=== PATIENT | female | born 1965 | race Caucasian/White ===

== ENCOUNTER 2016-10-22 09:31 | Emergency (ER) | payer OTHER ==
[2016-10-22] MEDS ORDERED: Ondansetron ODT TAB* 4 MG PO ONE (09:37)
[2016-10-22] MEDS ORDERED: Ondansetron INJ* 2 MG/ML VIAL ONE (09:42)
[2016-10-22] MEDS ORDERED: Ondansetron INJ* 2 MG/ML VIAL IV ONE (10:11)
[2016-10-22] MEDS ORDERED: Metoclopramide IV* 5 MG/ML 2 ML VIAL IV SLOW PU ONE (11:01)
[2016-10-22] MEDS ORDERED: Metoclopramide IV* 5 MG/ML 2 ML VIAL ONE (11:02)
[2016-10-22 11:03] LABS: Hematocrit 44 % (35-47); Hemoglobin 14.9 g/dl (12.0-16.0); Mean Corpuscular HGB Conc 34 g/dl (31-36); Mean Corpuscular Hemoglobin 31 pg (27-31); Mean Corpuscular Volume 91 fL (80-97); Mean Platelet Volume 10 um3 (7.4-10.4); Red Blood Count 4.87 10^6/ul (4.0-5.4); Red Cell Distribution Width 14 % (10.5-15); White Blood Count 12.7 10^3/ul (3.5-10.8)
[2016-10-22 11:17] LABS: Albumin 4.2 g/dL (3.2-5.2); BUN/Creatinine Ratio 23.7 (8-20); Calcium 10.5 mg/dL (8.6-10.3); EGFR African American 138.8 (>60); EGFR Non-African American 107.9 (>60); Globulin 3.1 g/dL (2-4); Potassium 3.8 mmol/L (3.5-5.0); Total Bilirubin 0.7 mg/dL (0.2-1.0); Total Protein 7.3 g/dL (6.4-8.9)
[2016-10-22] MEDS ORDERED: Morphine INJ* 4 MG/ML 1 ML CARPUJECT IV ONE (12:02)
[2016-10-22] MEDS ORDERED: PROCHLORPERAZINE INJ 5 MG/ML 2 ML VIAL IV PRN (12:02)
[2016-10-22] MEDS ORDERED: NS 0.9% 1000 ML* 2,000 ML IV ONE ×2 (12:03→15:50)
--- NOTE | 2016-10-22 12:44 | RAD ---
CLINICAL HISTORY: Left flank pain COMPARISON: None TECHNIQUE: Multiple contiguous axial CT scans were obtained of the abdomen and pelvis, without intravenous contrast enhancement. Coronal and sagittal multiplanar reformations are submitted for review. Oral contrast was not administered. FINDINGS: The study is limited by the lack of intravenous contrast. This limits evaluation of the solid organs and vasculature. LUNG BASES: The lung bases are clear. LIVER: The right lobe of liver measures 19 cm in long axis. BILE DUCTS: There is no intrahepatic or extrahepatic biliary dilatation. GALLBLADDER: The gallbladder is not visualized. Surgical clips are noted in the gallbladder fossa. PANCREAS: The pancreas is normal, without mass or ductal dilatation. SPLEEN: Normal in size and appearance. UPPER GI TRACT: Evaluation of the gastrointestinal tract is limited by incomplete gastric distention. The upper GI tract is unremarkable. SMALL BOWEL AND MESENTERY: The small bowel is normal in contour, course, and caliber. There is no obstruction or dilatation. COLON: The colon is normal in contour, course, caliber. There is no pericolonic inflammatory change. ADRENALS: Again noted is enlargement of the adrenal glands bilaterally KIDNEYS: There is a 4.5 x 3.8 cm mass of the lower pole of the left kidney. There is high attenuation material within the left renal pelvis which may represent a calculus measuring up to 1.4 cm. There is no hydronephrosis. BLADDER: The bladder is smooth in contour. PELVIC ORGANS: There is a 2.8 cm cystic lesion of the left hemipelvis. AORTA: The aorta is normal. IVC: Unremarkable LYMPH NODES: There is no lymphadenopathy by size criteria. ABDOMINAL WALL: There is no evidence for abdominal wall hernia. BONES AND SOFT TISSUES: Unremarkable OTHER: None IMPRESSION: 1. THERE IS A 4.5 CM MASS OF THE LOWER POLE OF THE LEFT KIDNEY CONCERNING FOR RENAL PARENCHYMAL NEOPLASM. 2. THERE IS HIGH ATTENUATION MATERIAL MATERIAL, WHICH MAY REPRESENT A NONOBSTRUCTING PELVIC STONE MEASURING UP TO 1.4 CM.. 3. THERE IS 2.8 CM CYSTIC LESION LEFT HEMIPELVIS, LIKELY OVARIAN IN ORIGIN BUT INCOMPLETELY EVALUATED ON NONCONTRAST CT 4. THERE IS AN ENLARGED RIGHT LOBE OF LIVER VERSUS BERNADETTE'S LOBE
[2016-10-22 13:02] LABS: Urine Bacteria Absent (Absent); Urine Bilirubin Negative (Negative); Urine Glucose Negative (Negative); Urine Nitrite Negative (Negative)
[2016-10-22] MEDS ORDERED: cefTRIAXone(*) 1 GM in NS 0.9% 50 ML* 50 ML IVPB ONE (13:35)
--- NOTE | 2016-10-22 17:16 | RAD ---
INDICATION: Left flank pain COMPARISON: CT abdomen pelvis from the same date TECHNIQUE: Real-time ultrasound examination of the bilateral kidneys and urinary bladder including grayscale and Doppler color flow analysis. FINDINGS: The right kidney is normal in size and echogenicity. There are no hypervascular renal masses. There are no renal calculi or hydronephrosis identified. At the lower pole of the left kidney there is a heterogeneous mass measuring 4.9 x 4.7 x 5.3 cm exhibiting moderate vascularity. The ivey of the urinary bladder are smooth. The pre and post urinary bladder volumes are , respectively. Normal ureteral jets are identified bilaterally. Incidentally imaged is an avascular and heterogeneous echogenic follicle in the left ovary. IMPRESSION: 1. Vascular mass at the lower pole the left kidney measuring up to 5.3 cm in greatest dimension. This is most concerning for malignancy and neoplastic workup is advised. 2. Incidentally noted is an echogenic left ovarian follicle which is not necessarily pathologic in a woman who is still undergoing menstrual activity. This can be followed with pelvic ultrasound in 6 weeks to ascertain resolution.
[2016-10-22 18:40] VITALS: BP 120/72
--- NOTE | 2016-10-23 16:28 | ED ---
I, Enrike,Santhosh, scribed for Ancelmo Tam MD on 10/22/16 at 1203 . Abdominal Pain/Female - HPI Summary HPI Summary: This 51 y/o female presents to ED for acute LLQ abd pain since 2300 PM last night. Pt also reports blood in urine since 3 days ago and n/v since the onset of abd pain since morning. Pt is s/p hysterectomy, and is denying any possibility of bleeding be vaginal. PMHx includes UTI. Pt denies any history of kidney stone, but expresses concerned that she might have one this time. Pt is currently on lipitor. She is a daily drinker and daily smoker. - History of Current Complaint Chief Complaint: EDAbdPain Stated Complaint: POSS RECTAL/ VAGINAL BLEEDING Time Seen by Provider: 10/22/16 10:36 Hx Obtained From: Patient Hx Last Menstrual Period: about a month ago Onset/Duration: Sudden Onset Timing: Constant Severity Initially: Moderate Severity Currently: Moderate Pain Intensity: 0 Location: Discrete At: LLQ Radiates: No Character: Sharp Aggravating Factor(s): Nothing Alleviating Factor(s): Nothing Associated Signs and Symptoms: Positive: Urinary Symptoms - hematuria, Nausea, Vomiting. Negative: Fever Allergies/Adverse Reactions: Allergies Allergy/AdvReac Type Severity Reaction Status Date / Time Latex Allergy RED AND Verified 04/27/15 07:01 ITCHY Varenicline [From Chantix] Allergy SEVERE Verified 04/27/15 07:01 DEPRESSION IMMEDIATELY AFTER STARTED TAKING PMH/Surg Hx/FS Hx/Imm Hx Endocrine/Hematology History: Reports: Hx Blood Transfusions - during , Hx Anemia - reports being severely anemic-SOMETIMES WORSE THAN OTHERS Denies: Hx Anticoagulant Therapy, Hx Blood Disorders, Hx Bone Marrow Disease , Hx Diabetes, Hx Systemic Lupus Erythematosus, Hx Sickle Cell Disease, Hx Thyroid Disease, Hx Unexplained Bleeding Cardiovascular History: Reports: Other Cardiovascular Problems/Disorders - STATES HAS "EXTREMELY LOW BLOOD PRESSURE" Denies: Hx Hypertension, Hx Pacemaker/ICD Respiratory History: Reports: Hx Asthma - HX OF BUT Not in years, Hx Pneumonia - 15 years ago, Other Respiratory Problems/Disorders - heqavy smoker 30+ yrs Denies: Hx Chronic Bronchitis, Hx Chronic Obstructive Pulmonary Disease (COPD ), Hx Cystic Fibrosis, Hx Lung Cancer, Hx Pleural Effusion, Hx Pulmonary Edema, Hx Pulmonary Embolism, Hx Seasonal Allergies, Hx Sleep Apnea GI History: Reports: Hx Gall Bladder Disease - Ch[place] 4 years ago Denies: Hx Cirrhosis, Hx Crohn's Disease, Hx Diverticulosis, Hx Gastroesophageal Reflux Disease, Hx Gastrointestinal Bleed, Hx Hiatal Hernia, Hx Irritable Bowel, Hx Jaundice, Hx Obstructive Bowel, Hx Ileostomy, Hx Pyloric Stenosis, Hx Ulcer, Other GI Disorders History: Reports: Hx Kidney Infection - 1984 Denies: Hx Acute Renal Failure, Hx Benign Prostatic Hyperplasia, Hx Chronic Renal Failure, Hx Dialysis, Hx Kidney Stones, Hx Renal Disease Musculoskeletal History: Reports: Hx Back Problems, Other Musculoskeletal History - BACK PAIN Denies: Hx Arthritis, Hx Bursitis, Hx Congenital Bone Abnormalities, Hx Fibromyalgia, Hx Gout, Hx Orthopedic Injury, Hx Osteoporosis, Hx Scoliosis, Hx Tendonitis Sensory History: Reports: Hx Vision Problem - difficulty focusing Denies: Hx Contacts or Glasses, Hx Hearing Aid Opthamlomology History: Reports: Hx Vision Problem - difficulty focusing Denies: Hx Contacts or Glasses Neurological History: Reports: Hx Headaches, Hx Migraine - COMPLEX- VISUAL AURAS - WAITED OUT Denies: Hx Dementia, Hx Developmental Delay, Hx Seizures, Hx Spinal Cord Injury, Hx Transient Ischemic Attacks (TIA), Other Neuro Impairments/Disorders Psychiatric History: Reports: Hx Anxiety - NO MEDICATION FOR AT THIS TIME, Hx Depression - ON AND OFF OVER THE YEARS Denies: Hx Attention Deficit Hyperactivity Disorder, Hx Eating Disorder, Hx Panic Disorder, Hx Post Traumatic Stress Disorder, Hx Inpatient Treatment, Hx Community Mental Health Tx, Hx Schizophrenia, Hx Bipolar Disorder, Hx Suicide Attempt, Hx of Violent Episodes Against Others, Hx Substance Abuse - Cancer History Cancer Type, Location and Year: PRE CANCER LEFT BREAST-APPOINTMENT WITH SURGEON. neg biposy 02/2013 Hx Chemotherapy: No Hx Radiation Therapy: No - Surgical History Surgery Procedure, Year, and Place: CHOLECYCTECTOMY 2009-[facility]. APPY 2003, TUBAL 2009,. UTERINE ABLATION 2010, LEFT [facility]IA REM[facility]- [facility]. LEFT BREAST lumpectomy AND RIGHT ARMPIT 02/2013 neg for cancer-[facility] Hx Anesthesia Reactions: Yes - STATES CAN WAKE UP WITH "ATTITUDE"/ STATES HAS WOKE UP DURING SURGERY-2012 Infectious Disease History: No Infectious Disease History: Denies: Hx Clostridium Difficile, Hx Hepatitis - STATES NO- BUT HAS BEEN EXPOSED AND STATES IS DUE TO BE TESTED, Hx Human Immunodeficiency Virus (HIV), Hx Shingles, Hx Tuberculosis, Traveled Outside the [place] in Last 30 Days - Family History Known Family History: Positive: Respiratory Disease, Other Family History: COPD, CA - lung, pancreatic - Social History Alcohol Use: Daily Alcohol Amount: 2 BEERS/OR GLASSES OF WINE WITH DINNER Hx Substance Use: Yes - Remote hx 30+ years ago. Substance Use Type: Reports: Prescribed Substance Use Comment - Amount & Last Used: occasionally Hx Tobacco Use: Yes Smoking Status (MU): Light Every Day Tobacco Smoker Amount Used/How Often: 1/2 ppd X 30 YEARS Have You Smoked in the Last Year: Yes Review of Systems Negative: Fever, Chills Negative: Erythema Negative: Sore Throat Negative: Chest Pain Negative: Shortness Of Breath Positive: Abdominal Pain, Vomiting, Nausea Positive: hematuria Negative: Myalgia, Edema Negative: Rash Neurological: Other - negative dizziness All Other Systems Reviewed And Are Negative: Yes Physical Exam - Summary Physical Exam Summary: Constitutional: Well-developed, Well-nourished, Alert. (-) Distressed Skin: Warm, Dry HENT: Normocephalic; Atraumatic Eyes: Conjunctiva normal Neck: Musculoskeletal ROM normal neck. (-) JVD, (-) Stridor, (-) Tracheal deviation Cardio: Rhythm regular, rate normal, Heart sounds normal; Intact distal pulses; The pedal pulses are 2+ and symmetric. Radial pulses are 2+ and symmetric. (-) Murmur Pulmonary/Chest wall: Effort normal. (-) Respiratory distress, (-) Wheezes, (-) Rales Abd: Soft, (+) Tenderness at LLQ and suprapubic, (-) Distension, (-) Guarding, (-) Rebound Musculoskeletal: (-) Edema Lymph: (-) Cervical adenopathy Neuro: Alert, Oriented x3 Psych: Mood and affect Normal Triage Information Reviewed: Yes Vital Signs On Initial Exam: Initial Vitals Temp Pulse Resp BP Pulse Ox 99.9 F 53 24 124/99 98 10/22/16 09:51 10/22/16 09:51 10/22/16 09:51 10/22/16 09:51 10/22/16 09:51 Vital Signs Reviewed: Yes Diagnostics - Vital Signs Vital Signs Temp Pulse Resp BP Pulse Ox 10/22/16 11:16 18 10/22/16 11:13 98.7 F 10/22/16 10:57 99.9 F 53 24 124/99 98 10/22/16 09:51 99.9 F 53 24 124/99 98 - Laboratory Lab Results: Lab Results 10/22/16 10/22/16 Range/Units 09:58 09:58 WBC 12.7 H (3.5-10.8) 10^3/ul RBC 4.87 (4.0-5.4) 10^6/ul Hgb 14.9 (12.0-16.0) g/dl Hct 44 (35-47) % MCV 91 (80-97) fL MCH 31 (27-31) pg MCHC 34 (31-36) g/dl RDW 14 (10.5-15) % Plt Count 231 (150-450) 10^3/ul MPV 10 (7.4-10.4) um3 Neut % (Auto) 78.3 (38-83) % Lymph % (Auto) 14.9 L (25-47) % Wagoner % (Auto) 5.8 (1-9) % Eos % (Auto) 0.1 (0-6) % Baso % (Auto) 0.9 (0-2) % Absolute Neuts (auto) 9.9 H (1.5-7.7) 10^3/ul Absolute Lymphs (auto) 1.9 (1.0-4.8) 10^3/ul Absolute Monos (auto) 0.7 (0-0.8) 10^3/ul Absolute Eos (auto) 0 (0-0.6) 10^3/ul Absolute Basos (auto) 0.1 (0-0.2) 10^3/ul Absolute Nucleated RBC 0.01 10^3/ul Nucleated RBC % 0 Sodium 135 (133-145) mmol/L Potassium 3.8 (3.5-5.0) mmol/L Chloride 103 (101-111) mmol/L Carbon Dioxide 23 (22-32) mmol/L Anion Gap 9 (2-11) mmol/L BUN 14 (6-24) mg/dL Creatinine 0.59 (0.51-0.95) mg/dL Est GFR ( Amer) 138.8 (>60) Est GFR (Non-Af Amer) 107.9 (>60) BUN/Creatinine Ratio 23.7 H (8-20) Glucose 129 H (70-100) mg/dL Calcium 10.5 H (8.6-10.3) mg/dL Total Bilirubin 0.70 (0.2-1.0) mg/dL AST 14 (13-39) U/L ALT 13 (7-52) U/L Alkaline Phosphatase 67 (34-104) U/L Total Protein 7.3 (6.4-8.9) g/dL Albumin 4.2 (3.2-5.2) g/dL Globulin 3.1 (2-4) g/dL Albumin/Globulin Ratio 1.4 (1-3) Lipase 20 (11.0-82.0) U/L Result Diagrams: 10/22/16 09:58 10/22/16 09:58 Lab Statement: Any lab studies that have been ordered have been reviewed, and results considered in the medical decision making process. - CT Ab/P CT Interpretation: Positive (See Comments) - 1. THERE IS A 4.5 CM MASS OF THE LOWER POLE OF THE LEFT KIDNEY CONCERNING FOR RENAL PARENCHYMAL NEOPLASM. 2. THERE IS HIGH ATTENUATION MATERIAL MATERIAL, WHICH MAY REPRESENT A NONOBSTRUCTING PELVIC STONE MEASURING UP TO 1.4 CM.. 3. THERE IS 2.8 CM CYSTIC LESION LEFT HEMIPELVIS, LIKELY OVARIAN IN ORIGIN BUT INCOMPLETELY EVALUATED ON NONCONTRAST CT 4. THERE IS AN ENLARGED RIGHT LOBE OF LIVER VERSUS BERNADETTE'S LOBE CT Interpretation Completed By: Radiologist - EKG 0952 Cardiac Rate: NL - 53 bpm EKG Rhythm: Sinus Rhythm ST Segment: Normal Abdominal Pain Fem Course/Dx - Course Course Of Treatment: MDM: 51 y/o F c/o acute LLQ abd pain since 2300 yesterday. Associted sx: hematuria for 3 days, n/v since last night, abd pain this AM. Pt is s/p hysterectomy, and denies vaginal bleeding. PMHx includes UTI. Pt is on lipitor. She is a daily drinker and daily smoker. Abd/Pel CT is positive for: 4.5 cm mass of lower pole of L kidney concerning for renal parenchymal neoplasm ; high attenuation material of 1.4 cm which may be a nonobstructing pelvic stone ; 2.8 cystuc lesion of L hemipelvis likely ovarian in nature; enlarged R lobe of liver vs Bernadette's lobe. EKG is nml. Spoke with Dr. Knight, urology. - Diagnoses Provider Diagnoses: Renal mass - Provider Notifications Discussed Care Of Patient With: 1339: Dr. Knight, urology, will review CT and call back. 1405: Dr. Knight. Discharge - Discharge Plan Condition: Good Disposition: HOME Prescriptions: Cephalexin CAP* [Keflex CAP*] 500 mg PO QID #40 cap Ondansetron ODT TAB* [Zofran Odt TAB*] 4 mg PO Q8H PRN #15 tab.odt PRN Reason: Nausea/Vomiting Prochlorperazine TAB* [Compazine Tab*] 5 mg PO Q8H PRN #15 tab PRN Reason: Nausea/Vomiting oxyCODONE/Acetamin 5/325 MG* [Percocet 5/325 TAB*] 1 tab PO Q6H PRN #15 tab MDD 4 PRN Reason: Pain Scale 6-10 Referrals: Dominguez Knight MD [Medical Doctor] - (TOMORROW AT 0830) The documentation as recorded by the Enrike garcia Soohyun accurately reflects the service I personally performed and the decisions made by , Ancelmo Tam MD.
== END 2016-10-22 18:37 | disposition home or self-care (01) ==
LOC: ED 09:31
DX: N28.89 Other specified disorders of kidney and ureter (principal); R10.32 Left lower quadrant pain; R11.2 Nausea with vomiting, unspecified; R31.9 Hematuria, unspecified; F17.200 Nicotine dependence, unspecified, uncomplicated
CPT/HCPCS: 36415; 74176; 76770; 80053; 81003; 81015; 83690; 85025; 87086; 93005; 96374; 96375; 96376; 99284; J0696; J0780; J2270; J2405; J2765

== ENCOUNTER 2017-10-23 11:37 | Emergency (ER) | payer SELFPAY ==
[2017-10-23] MEDS ORDERED: Tetan/Diph/Pertus SYR(Tdap)* 0.5 ML SYR(BOOSTRIX) use SYR IM ONE (13:08)
[2017-10-23 13:16] LABS: ABS Basophils 0.2 10^3/ul (0-0.2); ABS Eosinophils 0.2 10^3/ul (0-0.6); ABS Lymphocytes 2.7 10^3/ul (1.0-4.8); ABS Monocytes 0.5 10^3/ul (0-0.8); ABS Nucleated RBC 0 10^3/ul; Eosinophil % 3.2 % (0-6); Hematocrit 43 % (35-47); Hemoglobin 14.6 g/dl (12.0-16.0); Lymphocyte % 40.8 % (25-47); Mean Corpuscular HGB Conc 34 g/dl (31-36); Mean Corpuscular Hemoglobin 32 pg (27-31); Mean Corpuscular Volume 93 fL (80-97); Mean Platelet Volume 8 um3 (7.4-10.4); Nucleated Red Blood Cells % 0.1; Platelet Count 251 10^3/ul (150-450); Red Blood Count 4.62 10^6/ul (4.0-5.4); Red Cell Distribution Width 14 % (10.5-15); White Blood Count 6.5 10^3/ul (3.5-10.8)
[2017-10-23 14:00] LABS: EGFR Non-African American 139.7 (>60)
[2017-10-23] MEDS ORDERED: Iodixanol* (CONTRAST) 320 MG/ML 100 ML SDV IV ONE (14:10)
[2017-10-23] MEDS ORDERED: Ondansetron ODT TAB* 4 MG SL ONE (14:32)
[2017-10-23] MEDS ORDERED: Ketorolac INJ* 30 MG/ML 1 ML VIAL IV PUSH ONE (14:33)
[2017-10-23] MEDS ORDERED: Ketorolac INJ* 15 MG/ML 1 ML VIAL ONE (14:39)
--- NOTE | 2017-10-23 14:46 | RAD ---
HISTORY: Subacute trauma, chest pain, concussion symptoms COMPARISONS: March 22, 2013 TECHNIQUE: Multiple contiguous axial CT scans were obtained of the head without intravenous contrast. FINDINGS: HEMORRHAGE/INFARCT: There is no hemorrhage or acute infarct. MASSES/SHIFT: There is no mass or shift. EXTRA-AXIAL SPACES: There are no extra-axial fluid collections. SULCI AND VENTRICLES: The sulci and ventricles are normal in size and position for the patient's stated age. CEREBRUM: There are no focal parenchymal abnormalities. BRAINSTEM: There are no focal parenchymal abnormalities. CEREBELLUM: There are no focal parenchymal abnormalities. VESSELS: The vessels are grossly normal. PARANASAL SINUSES: The paranasal sinuses are clear. ORBITS: The orbits are unremarkable. BONES AND SOFT TISSUE: No bone or soft tissue abnormalities are noted. OTHER: None IMPRESSION: NO ACUTE INTRACRANIAL PATHOLOGY.
--- NOTE | 2017-10-23 14:47 | RAD ---
HISTORY: Subacute trauma, facial trauma COMPARISONS: None TECHNIQUE: Multiple contiguous axial CT scans were obtained of the face without intravenous contrast, with coronal and sagittal multiplanar reformations. FINDINGS: BONES: There is no displaced fracture or dislocation. The orbital rim is intact. The zygomatic arch is intact. The pterygoid plates are intact. ORBITS: The globes are round. The optic nerves are symmetric. The extraocular musculature is normal. There is no post septal or intraconal inflammatory change. There is no retrobulbar hematoma. PARANASAL SINUSES: The paranasal sinuses are clear. There is a small osteoma left ethmoid air cells. BRAIN AND SOFT TISSUE: Unremarkable. OTHER: None. IMPRESSION: NO FACIAL FRACTURE
--- NOTE | 2017-10-23 15:01 | RAD ---
INDICATION: Chest pain status post trauma. COMPARISON: Comparison is made with a chest x-ray study from March 22, 2013. TECHNIQUE: A CT scan of the chest was performed with intravenous contrast following intravenous injection of 80 ml of Visipaque 320 nonionic contrast. Contiguous axial sections were obtained from the lung apices through the lung bases. Images were reconstructed in the coronal and sagittal planes. FINDINGS: There is moderate centrilobular emphysematous change. The lungs are clear. There is no evidence for pulmonary contusion. No pneumothorax or pleural effusion is present. No significant enlarged mediastinal or hilar lymph nodes are seen. There is no evidence for mediastinal hemorrhage. The heart is within normal limits in size. No pericardial effusion is present. The thoracic aorta is normal in caliber and demonstrates homogeneous contrast opacification. There are bilateral adrenal masses of intermediate density measuring 3.2 x 1.3 cm on the right and 6.1 x 1.8 cm on the left. These have increased slightly in size from prior exams and were low-attenuation on the prior noncontrast CT studies favoring benign adenomas. No significant focal osseous abnormality is seen. IMPRESSION: 1 NO EVIDENCE FOR ACUTE FINDING. 2. MODERATE CENTRILOBULAR EMPHYSEMATOUS CHANGE. 3. BILATERAL ADRENAL MASSES SLIGHTLY INCREASED IN SIZE, PRIOR STUDIES FAVOR BENIGN ADENOMAS ALTHOUGH GIVEN THE INTERVAL INCREASE IN SIZE RECOMMEND EITHER A FOLLOW-UP NONCONTRAST CT OR MRI OF THE ABDOMEN FOR FURTHER EVALUATION.
[2017-10-23 15:45] VITALS: BP 119/88
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
== END 2017-10-23 15:57 | disposition home or self-care (01) ==
LOC: ED 11:37
DX: R07.89 Other chest pain (principal); S06.0X9A Concussion with loss of consciousness of unspecified duration, initial encounter; R07.9 Chest pain, unspecified; R51 Headache; Z86.79 Personal history of other diseases of the circulatory system; J02.9 Acute pharyngitis, unspecified; R05 Cough; F17.210 Nicotine dependence, cigarettes, uncomplicated; V49.9XXA Car occupant (driver) (passenger) injured in unspecified traffic accident, initial encounter; Y92.410 Unspecified street and highway as the place of occurrence of the external cause
CPT/HCPCS: 36415; 70450; 70486; 71260; 80053; 85025; 90471; 90715; 96374; 96375; 99283; A9270-GY; J1885; Q9967

== ENCOUNTER 2019-03-27 16:59 | Emergency (ER) | payer MEDICAID, OTHER ==
--- NOTE | 2019-03-27 17:23 | ED ---
Lower Extremity - HPI Summary HPI Summary: A 53 y/o female presents to [facility] with a chief complaint of left foot pain today. She reportedly dropped heavy wooden box with the corner of the box hitting her left foot. She reports swelling immediately and worsening pain. At triage she rated her pain as a 7/10 in severity. She has not taken anything for pain. She drove herself to the ED. - History of Current Complaint Chief Complaint: EDExtremityLower Stated Complaint: POSS LT BROKEN FOOT PER PT Time Seen by Provider: 03/27/19 17:17 Hx Obtained From: Patient Hx Last Menstrual Period: about a month ago Mechanism Of Injury: Direct Blow Onset of Pain: Immediate, Post Accident, Prior to Arrival Onset/Duration: Minutes Severity Initially: Severe Severity Currently: Severe Pain Intensity: 7 Timing: Constant, Lasting Minutes Location: Is Discrete @ - left foot Character Of Pain: Unable To Describe Associated Signs And Symptoms: Positive: Swelling Aggravating Factor(s): Nothing Alleviating Factor(s): Nothing Able to Bear Weight: Yes - Allergies/Home Medications Allergies/Adverse Reactions: Allergies Allergy/AdvReac Type Severity Reaction Status Date / Time latex Allergy Rash Verified 03/27/19 17:07 varenicline [From Chantix] Allergy Suicidal Verified 03/27/19 17:07 ideation PET scan dye Allergy Hives Uncoded 04/27/18 12:03 PMH/Surg Hx/FS Hx/Imm Hx Endocrine/Hematology History: Reports: Hx Blood Transfusions - during Denies: Hx Anticoagulant Therapy, Hx Blood Disorders, Hx Bone Marrow Disease , Hx Diabetes, Hx Systemic Lupus Erythematosus, Hx Sickle Cell Disease, Hx Thyroid Disease, Hx Anemia, Hx Unexplained Bleeding Cardiovascular History: Reports: Other Cardiovascular Problems/Disorders - STATES HAS "EXTREMELY LOW BLOOD PRESSURE" Denies: Hx Hypertension, Hx Pacemaker/ICD Respiratory History: Reports: Hx Asthma - HX OF BUT Not in years, Hx Pneumonia - 15 years ago, Other Respiratory Problems/Disorders - heqavy smoker 30+ yrs Denies: Hx Chronic Bronchitis, Hx Chronic Obstructive Pulmonary Disease (COPD ), Hx Cystic Fibrosis, Hx Lung Cancer, Hx Pleural Effusion, Hx Pulmonary Edema, Hx Pulmonary Embolism, Hx Seasonal Allergies, Hx Sleep Apnea GI History: Reports: Hx Gall Bladder Disease - Choley 4 years ago Denies: Hx Cirrhosis, Hx Crohn's Disease, Hx Diverticulosis, Hx Gastroesophageal Reflux Disease, Hx Gastrointestinal Bleed, Hx Hiatal Hernia, Hx Irritable Bowel, Hx Jaundice, Hx Obstructive Bowel, Hx Ileostomy, Hx Pyloric Stenosis, Hx Ulcer, Other GI Disorders History: Reports: Hx Kidney Infection - 1984 Denies: Hx Acute Renal Failure, Hx Benign Prostatic Hyperplasia, Hx Chronic Renal Failure, Hx Dialysis, Hx Kidney Stones, Hx Renal Disease Musculoskeletal History: Reports: Hx Back Problems, Other Musculoskeletal History - BACK PAIN Denies: Hx Arthritis, Hx Bursitis, Hx Congenital Bone Abnormalities, Hx Fibromyalgia, Hx Gout, Hx Orthopedic Injury, Hx Osteoporosis, Hx Scoliosis, Hx Tendonitis Sensory History: Reports: Hx Vision Problem - difficulty focusing Denies: Hx Contacts or Glasses, Hx Hearing Aid Opthamlomology History: Reports: Hx Vision Problem - difficulty focusing Denies: Hx Contacts or Glasses Neurological History: Reports: Hx Headaches, Hx Migraine - COMPLEX- VISUAL AURAS - WAITED OUT Denies: Hx Dementia, Hx Developmental Delay, Hx Seizures, Hx Spinal Cord Injury, Hx Transient Ischemic Attacks (TIA), Other Neuro Impairments/Disorders Psychiatric History: Reports: Hx Anxiety - NO MEDICATION FOR AT THIS TIME, Hx Depression - ON AND OFF OVER THE YEARS Denies: Hx Attention Deficit Hyperactivity Disorder, Hx Eating Disorder, Hx Panic Disorder, Hx Post Traumatic Stress Disorder, Hx Inpatient Treatment, Hx Community Mental Health Tx, Hx Schizophrenia, Hx Bipolar Disorder, Hx Suicide Attempt, Hx of Violent Episodes Against Others, Hx Substance Abuse - Cancer History Cancer Type, Location and Year: PRE CANCER LEFT BREAST-APPOINTMENT WITH SURGEON. neg biposy 02/2013 Hx Chemotherapy: No Hx Radiation Therapy: No - Surgical History Surgery Procedure, Year, and Place: CHOLECYCTECTOM[place] 2009[place] [place] APPY 2003, TUBAL 2009,. UTERINE ABLATION 2010, [facility]. LEFT BREAST lumpectomy AND RIGHT ARMPIT 02/2013 neg for cancer-[facility] [place] Hx Anesthesia Reactions: Yes - STATES CAN WAKE UP WITH "ATTITUDE"/ STATES HAS WOKE UP DURING SURGERY-2012 - Immunization History Date of Tetanus Vaccine: unknown Date of Influenza Vaccine: NO Infectious Disease History: No Infectious Disease History: Denies: Hx Clostridium Difficile, Hx Hepatitis - STATES NO- BUT HAS BEEN EXPOSED AND STATES IS DUE TO BE TESTED, Hx Human Immunodeficiency Virus (HIV), Hx Shingles, Hx Tuberculosis, Traveled Outside the [place] in Last 30 Days - Family History Known Family History: Positive: Respiratory Disease, Other Family History: COPD, CA - lung, pancreatic - Social History Alcohol Use: Occasionally Alcohol Amount: 2 glasses wine a week Hx Substance Use: Yes - Remote hx 30+ years ago. Substance Use Type: Reports: Marijuana Substance Use Comment - Amount & Last Used: occasionally Hx Tobacco Use: Yes Smoking Status (MU): Light Every Day Tobacco Smoker Amount Used/How Often: 1/2 ppd X 30 YEARS Have You Smoked in the Last Year: Yes Review of Systems Negative: Fever Positive: Myalgia - pain left foot, Other - positive: swelling left foot All Other Systems Reviewed And Are Negative: Yes Physical Exam - Summary Physical Exam Summary: Appearance: The patient is well-nourished in no acute distress and in no acute pain. Skin: The skin is warm and dry and skin color reflects adequate perfusion. HEENT: The head is normocephalic and atraumatic. The pupils are equal and reactive. The conjunctivae are clear and without drainage. Nares are patent and without drainage. Mouth reveals moist mucous membranes and the throat is without erythema and exudate. The external ears are intact. The ear canals are patent and without drainage. The tympanic membranes are intact. Neck: The neck is supple with full range of motion and non-tender. There are no carotid bruits. There is no neck vein distension. Respiratory: Chest is non-tender. Lungs are clear to auscultation and breath sounds are symmetrical and equal. Cardiovascular: Heart is regular rate and rhythm. There is no murmur or rub auscultated. There is no peripheral edema and pulses are symmetrical and equal. Abdomen: The abdomen is soft and non-tender. There are normal bowel sounds heard in all four quadrants and there is no organomegaly palpated. Musculoskeletal: There is no back tenderness noted. Swelling on dorsum of the foot with minor abrasion. Too tender to check dorsalis pedis pulse. Neurovascularly intact. There is no peripheral edema or calf tenderness elicited. Neurological: Patient is alert and oriented to person, place and time. The patient has symmetrical motor strength in all four extremities. Cranial nerves are grossly intact. Deep tendon reflexes are symmetrical and equal in all four extremities. Psychiatric: The patient has an appropriate affect and does not exhibit any anxiety or depression. swelling on dorsum of the foot with minor abrasion too tender to check dorsalis pedis pulse, neurovascularly intact Triage Information Reviewed: Yes Vital Signs On Initial Exam: Initial Vitals Temp Pulse Resp BP Pulse Ox 99.3 F 78 16 107/66 98 03/27/19 17:01 03/27/19 17:01 03/27/19 17:01 03/27/19 17:01 03/27/19 17:01 Vital Signs Reviewed: Yes Diagnostics - Vital Signs Vital Signs Temp Pulse Resp BP Pulse Ox 03/27/19 17:01 99.3 F 78 16 107/66 98 - Laboratory Lab Statement: Any lab studies that have been ordered have been reviewed, and results considered in the medical decision making process. - Radiology foot x-ray Radiology Interpretation Completed By: Radiologist Summary of Radiographic Findings: IMPRESSION: NO EVIDENCE FOR FRACTURE, IF THE PATIENT'S SYMPTOMS PERSIST RECOMMEND. FOLLOW-UP IMAGING. ED physician has reviewed this imaging report. Re-Evaluation - Re-Evaluation First Eval Re-Evaluation Time: 18:18 Change: Improved Comment: Discussed results and plan for DC Lower Extremity Course/Dx - Course Course Of Treatment: Ms. Portillo suffered a contusion to her left foot. X-rays were negative and I recommended conservative treatment and gave her a prescription for tramadol for pain. She has taken tramadol in the past without difficulty. - Diagnoses Provider Diagnoses: Foot contusion Discharge - Sign-Out/Discharge Documenting (check all that apply): Patient Departure - DC Patient Received Moderate/Deep Sedation with Procedure: No - Discharge Plan Condition: Stable Disposition: HOME Prescriptions: traMADol TAB* [Ultram*] 50 mg PO Q6HR PRN #20 tab MDD 4 PRN Reason: Pain Patient Education Materials: Foot Contusion (ED) Referrals: Lyndsay Mackenzie MD [Primary Care Provider] - (2-3 days) Additional Instructions: Return to the ED if you experience any new or worsening symptoms. - Billing Disposition and Condition Condition: STABLE Disposition: Home - Attestation Statements Document Initiated by Scribe: Yes Documenting Scribe: Jomar Zapata Provider For Whom Valerie is Documenting (Include Credential): Zeyad Yan MD Scribe Attestation: Jomar Patel scribed for Zeyad Yan MD on 03/28/19 at 0821. Scribe Documentation Reviewed: Yes Provider Attestation: The documentation as recorded by the Jomar garcia accurately reflects the service I personally performed and the decisions made by me, Zeyad Yan MD Status of Scribe Document: Viewed
[2019-03-27 18:36] VITALS: BP 110/70
== END 2019-03-27 18:35 | disposition home or self-care (01) ==
LOC: ED 16:59
DX: S90.32XA Contusion of left foot, initial encounter (principal); W20.8XXA Other cause of strike by thrown, projected or falling object, initial encounter; Y92.9 Unspecified place or not applicable; Z88.8 Allergy status to other drugs, medicaments and biological substances; Z91.041 Radiographic dye allergy status; Z91.040 Latex allergy status; F17.210 Nicotine dependence, cigarettes, uncomplicated
CPT/HCPCS: 99282

== ENCOUNTER 2019-07-29 14:11 | Emergency (ER) | payer OTHER ==
--- OUTSIDE RECORDS SUMMARY | 2019-07-29 14:30 | XMS REPORT | Continuity of Care Document ---
:1965 External Reference #:[id number] Author Name Shayy Francois N.P. (transmitted by agent of provider Suha Abad) Address [address], [place] [address] Care Team Providers Name Role Phone Lyndsay Mackenzie MD - Internal Care Team Information Skip Hoist Engineer [phone] Medicine Kevin Hoskins MD - Surgery Care Team Information Skip Hoist Engineer [phone] Pieter Soni MD - Neurology Care Team Information Skip Hoist Engineer [phone] Problems Active Problems Provider Date Low back pain Lyndsay Mackenzie M.D. Onset: 12/27/2011 Refractory migraine with aura Lyndsay Mackenzie M.D. Onset: 06/29/2013 Mixed hyperlipidemia Lyndsay Mackenzie M.D. Onset: 06/29/2013 Social History Type Date Description Comments Sex Unknown ETOH Use Drinks Alcoholic Beverages has cut down to about Occasionally 1/week Tobacco Use Start: Unknown Patient is a current Has continued to cut smoker, smokes every day back, trying to quit. Down to 5 daily Smoking Status Reviewed: 07/16/19 Patient is a current Has continued to cut smoker, smokes every day back, trying to quit. Down to 5 daily Allergies, Adverse Reactions, Alerts Active Allergies Reaction Severity Comments Date Chantix Severe Suicidal depression 11/02/2015 Inactive Allergies NKDA 12/27/2011 Medications Active Medications SIG Qnty Indications Ordering Provider Date Omeprazole 1 by mouth every 30caps R10.816 Shayy Francois, 07/16/2019 20mg Capsules day N.P. Alprazolam one by mouth up 30tabs Shayy Francois, 04/10/2017 0.5mg Tablets to two times a N.P. day as needed anxiety Atorvastatin Calcium 1 by mouth every 30tabs Shayy Francois, 09/30/2013 40mg day N.P. Tablets Immunizations CPT Code Status Date Vaccine Lot # [id number] Given 07/01/2013 Pneumonia Vaccine [id number] Given 12/27/2011 Tdap - Tetanus/Diptheria/Acellular Pertussis [id number] Vital Signs Date Vital Result Comment 07/16/2019 10:33am Height 65 inches 5'5" Weight 116.00 lb Heart Rate 58 /min BP Systolic Sitting 130 mmHg BP Diastolic Sitting 84 mmHg BMI (Body Mass Index) 19.3 kg/m2 09/11/2018 2:03pm Height 65 inches 5'5" Weight 128.00 lb Heart Rate 75 /min BP Systolic 100 mmHg BP Diastolic 64 mmHg Body Temperature 97.6 F O2 % BldC Oximetry 98 % BMI (Body Mass Index) 21.3 kg/m2 Results Description No Information Available Procedures Date Code Description Status 02/04/2018 [id number] Colonoscopy Completed 06/08/2015 [id number] Mammogram Completed 01/03/2014 [id number] Mammogram Completed 01/01/2013 [id number] Mammogram Completed Medical Devices Description No Information Available Encounters Description No Information Available Assessments Date Code Description Provider 07/16/2019 C64.2 Malignant neoplasm of left kidney, except Shayy Francois N.P. renal pelvis 07/16/2019 D48.62 Neoplasm of uncertain behavior of left breast Shayy Francois N.P. 07/16/2019 R10.816 Epigastric abdominal tenderness Shayy Francois N.P. Plan of Treatment Future Appointment(s):07/30/2019 10:40 am - Shayy Francois N.P. at [facility] Internal Medicine - [facility]07/16/2019 - Shayy Francois N.P.C64.2 Malignant neoplasm of left kidney, except renal pelvisComments:I have ordered a CT scan of your chest , abdomen, and pelvis. I will contact you with your results.I am referring you back to Dr Ruiz to follow you locally.Referral:Tatiana Ruiz M.D., Hematology & MiglpnytF34.62 Neoplasm of uncertain behavior of left breastComments:I am ordering a mammogram for you. The imaging department will review your results at the time of your visit.I am referring you to back toReferral:Libra Pitts MD, Surgery,EtorivuP32.816 Epigastric abdominal tendernessNew Medication:Omeprazole 20 mg - 1 by mouth every dayComments:For your abdominal pain I have prescribed Omeprazole 20 mg. Take 1 tablet daily. I urge you to avoidirritants such as:Alcohol, coffee, spicy, greasy, and acidic foods.Follow up:Follow up 2 weeks Functional Status Description No Information Available Mental Status Description No Information Available Referrals Refer to Reason for Referral Status Appt Date Libra Pitts MD Patient with a left breast mass, previous history Created of left kidney cancer, referred for evaluation. Thank you. [address] [place] [address] [address] [place], [place] [address] [phone] Tatiana Ruiz M.D. Patient with history of left kidney cancer Created referred for continued management. [address] [place] [phone]
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
[2019-07-29 17:37] LABS: ABS Eosinophils 0.2 10^3/ul (0-0.6); ABS Lymphocytes 3.1 10^3/ul (1.0-4.8); ABS Neutrophils 5.7 10^3/ul (1.5-7.7); Eosinophil % 1.8 %; Hematocrit 43 % (35-47); Hemoglobin 15.1 g/dL (12.0-16.0); Lymphocyte % 31.2 %; Mean Corpuscular HGB Conc 35 g/dL (31-36); Mean Corpuscular Hemoglobin 32 pg (27-31); Mean Corpuscular Volume 92 fL (80-97); Mean Platelet Volume 8.2 fL (7.4-10.4); Platelet Count 244 10^3/uL (150-450); Red Blood Count 4.68 10^6 /uL (3.70-4.87); Red Cell Distribution Width 14 % (10-15); White Blood Count 10.1 10^3/uL (3.5-10.8)
[2019-07-29 17:54] LABS: Albumin 4.4 g/dL (3.2-5.2); Albumin/Globulin Ratio 1.6 (1-3); BUN/Creatinine Ratio 26.4 (8-20); Calcium 10.2 mg/dL (8.6-10.3); EGFR Non-African American 120.7 (>60); Globulin 2.7 g/dL (2-4); Potassium 4.3 mmol/L (3.5-5.0); Total Bilirubin 0.7 mg/dL (0.2-1.0); Total Protein 7.1 g/dL (6.4-8.9)
[2019-07-29] MEDS ORDERED: Bacitracin OINTMENT* 0.5% 0.5 oz TUBE ONE (17:57)
[2019-07-29] MEDS ORDERED: oxyCODONE TAB* 5 MG TAB PO ONE (18:34)
[2019-07-29] MEDS ORDERED: Cyclobenzaprine TAB* 10 MG PO ONE (18:35)
[2019-07-29] MEDS ORDERED: Ketorolac *IM* INJ* 60 MG/2 ML VIAL IM ONE (18:36)
[2019-07-29 18:56] VITALS: BP 106/68
== END 2019-07-29 18:54 | disposition home or self-care (01) ==
LOC: ED 14:11
DX: M54.9 Dorsalgia, unspecified (principal); R07.9 Chest pain, unspecified; F17.210 Nicotine dependence, cigarettes, uncomplicated; M54.5 Low back pain; V89.2XXA Person injured in unspecified motor-vehicle accident, traffic, initial encounter; Y92.9 Unspecified place or not applicable; R55 Syncope and collapse
CPT/HCPCS: 36415; 70450; 71250; 72100; 80053; 83605; 85025; 93005; 96372; 99282; A9270-GY; J1885

== ENCOUNTER 2019-07-30 17:04 | Emergency (ER) | payer OTHER ==
[2019-07-30 17:08] VITALS: BP 129/100
[2019-07-30 18:18] LABS: ABS Eosinophils 0.2 10^3/ul (0-0.6); ABS Monocytes 0.5 10^3/ul (0-0.8); ABS Neutrophils 4.3 10^3/ul (1.5-7.7); Eosinophil % 2.8 %; Hematocrit 43 % (35-47); Hemoglobin 14.8 g/dL (12.0-16.0); Lymphocyte % 28.3 %; Mean Corpuscular HGB Conc 35 g/dL (31-36); Mean Corpuscular Hemoglobin 32 pg (27-31); Mean Corpuscular Volume 93 fL (80-97); Mean Platelet Volume 8.1 fL (7.4-10.4); Nucleated Red Blood Cells % 0.1; Platelet Count 205 10^3/uL (150-450); Red Blood Count 4.63 10^6 /uL (3.70-4.87); Red Cell Distribution Width 14 % (10-15); White Blood Count 6.9 10^3/uL (3.5-10.8)
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
[2019-07-30 18:36] LABS: Albumin 4.4 g/dL (3.2-5.2); Albumin/Globulin Ratio 1.6 (1-3); BUN/Creatinine Ratio 18.6 (8-20); Calcium 10.5 mg/dL (8.6-10.3); EGFR Non-African American 106.6 (>60); Globulin 2.7 g/dL (2-4); Potassium 4.1 mmol/L (3.5-5.0); Total Bilirubin 0.8 mg/dL (0.2-1.0); Total Protein 7.1 g/dL (6.4-8.9)
[2019-07-30 18:41] LABS: HCG Pregnancy 1.83 mIU/mL
--- OUTSIDE RECORDS SUMMARY | 2019-07-30 20:21 | XMS REPORT | Continuity of Care Document ---
:1965 External Reference #:[id number] Author Name Libra Pitts MD (transmitted by agent of provider Shante Ramirez) Address [address], [place] [address] Care Team Providers Name Role Phone Lyndsay Mackenzie MD - Internal Care Team Information Strategic Intelligence Officer Medicine Kevin Hoskins MD - Surgery Care Team Information Strategic Intelligence Officer [phone] Pieter Soni MD - Neurology Care Team Information Strategic Intelligence Officer Problems Active Problems Provider Date Low back pain Lyndsay Mackenzie M.D. Onset: 12/27/2011 Refractory migraine with aura Lyndsay Mackenzie M.D. Onset: 06/29/2013 Mixed hyperlipidemia Lyndsay Mackenzie M.D. Onset: 06/29/2013 Social History Type Date Description Comments Sex Unknown ETOH Use Drinks Alcoholic Beverages 3-4 per week Occasionally Tobacco Use Start: Unknown Patient is a current smoker, 1/2 PPD smokes every day Recreational Drug Use Current Drug User Marijuana Smoking Status Reviewed: 07/30/19 Patient is a current smoker, 1/2 PPD smokes every day Exercise Type/Frequency Exercises regularly Allergies, Adverse Reactions, Alerts Active Allergies Reaction Severity Comments Date Chantix Severe Suicidal depression 11/02/2015 Latex skin irritation 07/30/2019 Inactive Allergies NKDA 12/27/2011 Medications Active Medications SIG Qnty Indications Ordering Date Provider Omeprazole 1 by mouth 30caps R10.816 Shayy Francois, 07/16/[address] every day N.P. Alprazolam one by mouth up 30tabs Shayy Francois, 04/10/2017 0.5mg Tablets to two times a N.P. day as needed anxiety Atorvastatin Calcium 1 by mouth 30tabs Shayy Bethelli, 09/30/2013 40mg every day N.P. Tablets Cyclobenzaprine HCL 1 tab as needed Bigg Melendez, 10mg MD Tablets Oxycodone HCL 1 tab by mouth Bigg Melendez, 5mg Tablets as needed MD Immunizations CPT Code Status Date Vaccine Lot # [id number] Given 07/01/2013 Pneumonia Vaccine [id number] Given 12/27/2011 Tdap - Tetanus/Diptheria/Acellular Pertussis [id number] Vital Signs Date Vital Result Comment 07/30/2019 8:41am Height 65 inches 5'5" Weight 116.00 lb Heart Rate 84 /min BP Systolic Sitting 110 mmHg BP Diastolic Sitting 70 mmHg Respiratory Rate 16 /min Body Temperature 98.4 F BMI (Body Mass Index) 19.3 kg/m2 07/16/2019 10:33am Height 65 inches 5'5" Weight 116.00 lb Heart Rate 58 /min BP Systolic Sitting 130 mmHg BP Diastolic Sitting 84 mmHg BMI (Body Mass Index) 19.3 kg/m2 Results Test Date Facility Test Result H/L Range Note CBC Auto 07/29/2019 [facility] White Blood 10.1 10^3/uL Normal 3.5-10.[address] [place] [address] [phone] Red Blood Count 4.68 10^6/uL Normal 3.70-4.87 Hemoglobin 15.1 g/dL Normal 12.0-16.0 Hematocrit 43 % Normal 35-47 Mean Corpuscular Volume 92 fL Normal 80-97 Mean Corpuscular Hemoglobin 32 pg High 27-31 Mean Corpuscular HGB Conc 35 g/dL Normal 31-36 Red Cell Distribution Width 14 % Normal 10-15 Platelet Count 244 10^3/uL Normal 150-450 Mean Platelet Volume 8.2 fL Normal 7.4-10.4 Abs Neutrophils 5.7 10^3/uL Normal 1.5-7.7 Abs Lymphocytes 3.1 10^3/uL Normal 1.0-4.8 Abs Monocytes 1.0 10^3/uL High 0-0.8 Abs Eosinophils 0.2 10^3/uL Normal 0-0.6 Abs Basophils 0.0 10^3/uL Normal 0-0.2 Abs Nucleated RBC 0.0 10^3/uL Granulocyte % 56.5 % Lymphocyte % 31.2 % Monocyte % 10.2 % Eosinophil % 1.8 % Basophil % 0.3 % Nucleated Red Blood Cells % 0.0 Laboratory test 07/29/2019 [facility] Lactic Acid 0.6 mmol/L Normal 0.5-2.0 1 finding [address] [place] [address] [phone] Comp Metabolic 07/29/2019 [facility] Sodium 133 mmol/L Low 135 -145 Panel [address] [place] [address] [phone] Potassium 4.3 mmol/L Normal 3.5-5.0 Chloride 102 mmol/L Normal 101-111 Co2 Carbon Dioxide 25 mmol/L Normal 22-32 Anion Gap 6 mmol/L Normal 2-11 Glucose 87 mg/dL Normal 70-100 Blood Urea Nitrogen 14 mg/dL Normal 6-24 Creatinine 0.53 mg/dL Normal 0.51-0.95 BUN/Creatinine Ratio 26.4 High 8-20 Calcium 10.2 mg/dL Normal 8.6-10.3 Total Protein 7.1 g/dL Normal 6.4-8.9 Albumin 4.4 g/dL Normal 3.2-5.2 Globulin 2.7 g/dL Normal 2-4 Albumin/Globulin Ratio 1.6 Normal 1-3 Total Bilirubin 0.70 mg/dL Normal 0.2-1.0 Alkaline Phosphatase 60 U/L Normal 34-104 Alt 33 U/L Normal 7-52 Ast 53 U/L High 13-39 Egfr Non- 120.7 >60 Egfr 146.0 >60 2 BUN/Creat/GFR 2019 [facility] Poc Blood Urea 13 mg/dL Normal 8-[address] [address] [phone] Poc Creatinine 0.5 mg/dL Low 0.6-1.3 3 Poc BUN/Creatinine Ratio 26.0 High 8-20 Egfr Non- 129.1 >60 Egfr 156.2 >[address] [facility] [place] Severe Sepsis and Septic Shock Management Bundle Measure requires all lactic acids initially measuring >2.0 mmol/L be repeated. 2 Because ethnic data is not always readily available, this report includes an eGFR for both -Americans and non- Americans. The National Kidney Disease Education Program (NKDEP) does not endorse the use of the MDRD equation for patients that are not between the ages of 18 and 70, are , have extremes of body size, muscle mass, or nutritional status, or are non- or non-. According to the National Kidney Foundation, irrespective of diagnosis, the stage of the disease is based on the level of kidney function: Stage Description GFR(mL/min/1.73 m(2)) 1 Kidney damage with normal or decreased GFR 90 2 Kidney damage with mild decrease in GFR 60-89 3 Moderate decrease in GFR 30-59 4 Severe decrease in GFR 15-29 5 Kidney failure <15 (or dialysis) 3 Interstate Bus Driver: [id number] 4 Because ethnic data is not always readily available, this report includes an eGFR for both -Americans and non- Americans. The National Kidney Disease Education Program (NKDEP) does not endorse the use of the MDRD equation for patients that are not between the ages of 18 and 70, are , have extremes of body size, muscle mass, or nutritional status, or are non- or non-. According to the National Kidney Foundation, irrespective of diagnosis, the stage of the disease is based on the level of kidney function: Stage Description GFR(mL/min/1.73 m(2)) 1 Kidney damage with normal or decreased GFR 90 2 Kidney damage with mild decrease in GFR 60-89 3 Moderate decrease in GFR 30-59 4 Severe decrease in GFR 15-29 5 Kidney failure <15 (or dialysis) Procedures Date Code Description Status 02/04/2018 [id number] Colonoscopy Completed 06/08/2015 [id number] Mammogram Completed 01/03/2014 [id number] Mammogram Completed 01/01/2013 [id number] Mammogram Completed Medical Devices Description No Information Available Encounters Type Date Location Provider Dx Diagnosis Office Visit 07/16/2019 [facility] Internal Shayy Francois, C64.2 Malignant neoplasm 10:40a Medicine - [facility] N.P. of left kidney, except renal pelvis D48.62 Neoplasm of uncertain behavior of left breast R10.816 Epigastric abdominal tenderness Assessments Date Code Description Provider 07/30/2019 D48.62 Neoplasm of uncertain behavior of left breast Libra Pitts MD 07/16/2019 C64.2 Malignant neoplasm of left kidney, except Shayy Francois N.P. renal pelvis 07/16/2019 D48.62 Neoplasm of uncertain behavior of left breast Shayy Francois N.P. 07/16/2019 R10.816 Epigastric abdominal tenderness Shayy Francois N.Sonu. Plan of Treatment 07/30/2019 - Libra Pitts, MDD48.62 Neoplasm of uncertain behavior of left breastNew Xrays:US Breast Needle Core Biopsy Left, Ordered: 07/30/19Follow up:I will order a core needle biopsy of the left breast mass for you, which will be done with radiology. Please return to see me 1 week after your biopsy is done to review the results and discuss next steps. Functional Status Description No Information Available Mental Status Description No Information Available Referrals Refer to Dr Reason for Referral Status Appt Date Libra Pitts MD Patient with a left breast mass, previous history Sent 07/30 of left kidney cancer, referred for evaluation. Thank you. [address] [place], [place] [address] [phone] Tatiana Ruiz M.D. Patient with history of left kidney cancer Sent referred for continued management. [address] [place] [address] [phone]
--- OUTSIDE RECORDS SUMMARY | 2019-07-30 20:21 | XMS REPORT | Continuity of Care Document ---
:1965 External Reference #:[id number] Author Name Shayy Francois N.P. (transmitted by agent of provider Tabby Ruggiero) Address [address], [place] [address] Care Team Providers Name Role Phone Lyndsay Mackenzie MD - Internal Care Team Information Pacs Specialist Medicine Kevin Hoskins MD - Surgery Care Team Information Pacs Specialist [phone] Pieter Soni MD - Neurology Care Team Information Pacs Specialist Problems Active Problems Provider Date Low back [...] Atorvastatin Calcium 1 by mouth 30tabs Shayy Francois, 09/30/2013 40mg every day N.P. Tablets Cyclobenzaprine HCL 1 tab as needed Bigg Melendez, 10mg MD Tablets Oxycodone HCL 1 tab by mouth 60tabs Shayy Priscila, 5mg Tablets twice a day as N.P. needed pain Immunizations CPT Code Status Date Vaccine Lot # [id number] Given 07/01/2013 Pneumonia Vaccine [id number] Given 12/27/2011 Tdap - Tetanus/Diptheria/Acellular Pertussis [id number] Vital Signs Date Vital Result Comment 07/30/2019 10:26am Height 65 inches 5'5" Weight 115.00 lb Heart Rate 80 /min BP Systolic Sitting 150 mmHg BP Diastolic Sitting 91 mmHg Body Temperature 97.9 F O2 % BldC Oximetry 97 % BMI (Body Mass Index) 19.1 kg/m2 07/30/2019 8:41am Height 65 inches 5'5" Weight 116.00 lb Heart Rate 84 /min BP Systolic Sitting 110 mmHg BP Diastolic Sitting 70 mmHg Respiratory Rate 16 /min Body Temperature 98.4 F BMI (Body Mass Index) 19.3 kg/m2 Results Test Date Facility Test Result H/L Range Note CBC Auto 07/29/2019 [facility] White Blood 10.1 10^3/uL Normal 3.5-10.[address] [place] [address] [phone] Red Blood Count 4.68 10^6/uL Normal 3.70-4.87 [...] Blood Cells % 0.0 Laboratory test 07/29/2019 [facility] Lactic Acid 0.6 mmol/L Normal 0.5-2.0 [address] [place] [address] [phone] Comp Metabolic 07/29/2019 [facility] Sodium 133 mmol/L Low 135 -[address] [place] [address] [phone] Potassium 4.3 mmol/L Normal 3.5-5.0 Chloride 102 [...] >60 Egfr 146.0 >60 2 BUN/Creat/GFR 2019 [facility] Poc Blood Urea 13 mg/dL Normal 8-[address] [place] [address] [phone] Poc Creatinine 0.5 mg/dL Low 0.6-1.3 3 Poc BUN/Creatinine Ratio 26.0 High 8-20 Egfr Non- 129.1 >60 Egfr 156.2 >60 4 1 [facility] Severe Sepsis and Septic Shock Management Bundle [...] 5 Kidney failure <15 (or dialysis) 3 Manager Acquisition: [id number] 4 Because ethnic data is not always [...] dialysis) Procedures Date Code Description Status 02/04/2018 [id number] Colonoscopy Completed 06/08/2015 [id number] Mammogram Completed 01/03/2014 [id number] Mammogram Completed 01/01/2013 [id number] Mammogram Completed Medical Devices Description No Information Available Encounters Type Date Location Provider Dx Diagnosis Office Visit 07/16/2019 [facility] Internal Shayy Francois C64.2 Malignant neoplasm 10:40a Medicine - Ccmob N.P. of left kidney, except renal pelvis D48.62 Neoplasm of uncertain behavior of left breast R10.816 Epigastric abdominal tenderness Assessments Date Code Description Provider 07/30/2019 R10.816 Epigastric abdominal tenderness Shayy Francois N.P. 07/30/2019 D48.62 Neoplasm of uncertain behavior of left breast Libra Pitts MD 07/30/2019 M54.5 Low back pain Shayy Francois N.P. 07/16/2019 C64.2 Malignant neoplasm of left kidney, except Shayy Francois, N.P. renal pelvis 07/16/2019 D48.62 Neoplasm of uncertain behavior of left breast Shayy Francois N.P. 07/16/2019 R10.816 Epigastric abdominal tenderness Shayy Francois N.P. Plan of Treatment 07/30/2019 - Shayy Francois N.P.R10.816 Epigastric abdominal tendernessComments: To evaluate your abdominal pain I have referred you to a GI specialist. Stay on the Omeprazole and avoid greasy, spicy, and acidic foods.Referral:Dione Alcantara NP, Family/NPM54.5 Low back painNew Therapy:Physical TherapyComments:For your back pain:I am referring you for physical therapy. For pain I have prescribed Oxycodone 5 mg. You may take 1 tablet, twice daily at most as needed. Functional Status Description No Information Available Mental Status Description No Information Available Referrals Refer to Reason for Referral Status Appt Date Dioen Alcantara NP Patient with epigastric and LUQ pain not Created improved with Omeprazole. Referred for evaluation and treatment. [address] [place] [id number] [phone] Libra Pitts MD Patient with a left breast mass, previous history of Sent left kidney cancer, referred for evaluation. Thank you. [address] [facility] [place], [place] [address] [phone] Tatiana Ruiz M.D. Patient with history of left kidney cancer Sent referred for continued management. [address] [place] [address] [phone]
[2019-07-30 21:04] LABS: Hepatitis B Surface Antigen Nonreactive (Nonreactive)
[2019-07-30 21:22] LABS: Hepatitis C Antibody Negative (Negative)
== END 2019-07-30 21:01 | disposition home or self-care (01) ==
LOC: ED 17:04
DX: T76.21XA Adult sexual abuse, suspected, initial encounter (principal); Z87.19 Personal history of other diseases of the digestive system; Z85.528 Personal history of other malignant neoplasm of kidney; F17.210 Nicotine dependence, cigarettes, uncomplicated
CPT/HCPCS: 36415; 80053; 83605; 84702; 85025; 86803; 87340; 99282

== ENCOUNTER 2020-12-01 15:31 | Observation (INO) ==
[2020-12-01] MEDS ORDERED: fentaNYL 100 mcg/2 ml 50 MCG/ML VIAL IV SLOW PU ONE (15:51)
[2020-12-01] MEDS ORDERED: Ondansetron 4 mg VIAL 2 MG/ML 2 ml VIAL IV ONE (15:51)
[2020-12-01] MEDS ORDERED: NS 0.9% 1000 ml BAG 1,000 ML IV ONE (16:35)
[2020-12-01 20:44] LABS: ABS Basophils 0.1 10^3/ul (0-0.2); ABS Eosinophils 0.1 10^3/ul (0-0.6); ABS Lymphocytes 2.2 10^3/ul (1.0-4.8); ABS Monocytes 0.9 10^3/ul (0-0.8); ABS Neutrophils 9.5 10^3/ul (1.5-7.7); Hematocrit 41 % (35-47); Hemoglobin 13.7 g/dL (12.0-16.0); Lymphocyte % 17.4 %; Mean Corpuscular HGB Conc 34 g/dL (31-36); Mean Corpuscular Hemoglobin 30 pg (27-31); Mean Corpuscular Volume 91 fL (80-97); Mean Platelet Volume 7.9 fL (7.4-10.4); Platelet Count 291 10^3/uL (150-450); Red Cell Distribution Width 15 % (10-15); White Blood Count 12.9 10^3/uL (3.5-10.8)
[2020-12-01 21:09] LABS: Albumin/Globulin Ratio 1.5 (1-3); BUN/Creatinine Ratio 21.6 (8-20); EGFR Non-African American 81.8 (>60); Globulin 2.7 g/dL (2-4); Magnesium 2.1 mg/dL (1.9-2.7); Potassium 4.5 mmol/L (3.5-5.0); Total Bilirubin 0.8 mg/dL (0.2-1.0); Total Protein 6.7 g/dL (6.4-8.9)
[2020-12-02] MEDS: Cholecalciferol (VIT D3) 1,000 unit TAB PO SCH (10:08)
[2020-12-02] MEDS: Morphine 2 MG/ML SYRINGE IV PRN ×2 (18:41→20:41)
[2020-12-03 05:43] LABS: ABS Basophils 0.1 10^3/ul (0-0.2); ABS Eosinophils 0.1 10^3/ul (0-0.6); ABS Lymphocytes 2.3 10^3/ul (1.0-4.8); ABS Monocytes 0.6 10^3/ul (0-0.8); ABS Neutrophils 2.7 10^3/ul (1.5-7.7); Eosinophil % 2.3 %; Hematocrit 37 % (35-47); Hemoglobin 12.6 g/dL (12.0-16.0); Mean Corpuscular HGB Conc 34 g/dL (31-36); Mean Corpuscular Hemoglobin 31 pg (27-31); Mean Corpuscular Volume 90 fL (80-97); Mean Platelet Volume 8.3 fL (7.4-10.4); Nucleated Red Blood Cells % 0.1; Platelet Count 253 10^3/uL (150-450); Red Blood Count 4.06 10^6 /uL (3.70-4.87); Red Cell Distribution Width 14 % (10-15); White Blood Count 5.9 10^3/uL (3.5-10.8)
[2020-12-03 05:58] LABS: BUN/Creatinine Ratio 30.4 (8-20); Calcium 9.9 mg/dL (8.6-10.3); EGFR African American 136.5 (>60); EGFR Non-African American 112.8 (>60); Potassium 4.8 mmol/L (3.5-5.0)
[2020-12-03] MEDS: Cholecalciferol (VIT D3) 1,000 unit TAB PO SCH (08:03)
[2020-12-03 15:39] VITALS: BP 110/75
== END 2020-12-03 16:18 | disposition home or self-care (01) ==
LOC: MEDTELE 15:31 → ED 15:31 → MEDTELE 20:25
PROVIDERS: ADMIT Internal Medicine; ATTEND Internal Medicine